=== PATIENT | female | born 1985 | race Caucasian/White ===

== ENCOUNTER 2017-02-02 06:56 | Emergency (ER) | payer OTHER ==
[~2017-02-02] VITALS: Ht 165.1 cm; Wt 99.8 kg
[~2017-02-02 06:56] MED LIST: BACTRIM DS TAB1 EACH PO; CORTISPORIN OTI10 M2 OTIC; NORCO 5-325 TA1 EACH PO; VALIUM5 MG PO; VICODIN
[2017-02-02 07:38] LABS: ABSOLUTE NEUTROPHILS 6.4 thou/uL (1.4-8.2); BASOPHILS 0.6 % (0.0-2.0); EOSINOPHILS 2.1 % (0.0-3.0); HEMATOCRIT 38.7 % (37.0-47.0); HEMOGLOBIN 12.8 gm/dL (12.0-15.0); LYMPHOCYTES 28.2 % (24.0-44.0); MCH 31.6 pg (26.0-34.0); MCV 95.8 fL (80.0-100.0); MONOCYTES 6.6 % (1.0-8.0); PLATELET COUNT 200 thou/uL (150-400); POLYS 62.5 % (36.0-66.0); RBC 4.04 mil/uL (4.20-5.00); RDW 13.5 % (10.5-14.5); WBC 10.3 thou/uL (4.0-11.0)
[2017-02-02 07:44] LABS: MANUAL DIFF NO
[2017-02-02 07:47] LABS: CALCIUM 8.3 mg/dL (8.5-10.1); CREATININE 0.7 mg/dL (0.6-1.0)
[2017-02-02 09:08] VITALS: BP 108/72
== END 2017-02-02 09:05 | disposition home or self-care (01) ==
LOC: ER 06:56
PROVIDERS: Emergency Medicine
DX: R60.0 Localized edema (principal); E66.01 Morbid (severe) obesity due to excess calories; F17.210 Nicotine dependence, cigarettes, uncomplicated; Z88.6 Allergy status to analgesic agent

== ENCOUNTER 2017-08-30 16:57 | Inpatient (IN) | payer OTHER ==
[~2017-08-30] VITALS: Ht 152.4 cm; Wt 95.7 kg
--- NOTE | ~2017-08-30 | EKG ---
[address] [address] ELECTROCARDIOGRAM REPORT Name: ABIGAIL BENAVIDEZ Room #: [facility] .R.#: [id number] Admission: 08/30/17 Attend Phys: Moose Doyle MD Discharge: Date of : 81 Report #: [id number] THIS REPORT FOR: //name// [facility] ED Test Date: 2017-08-30 Test Time: 18:29:46 Pat Name: ABIGAIL BENAVIDEZ Department: Room: [facility] Gender: F [employer] Manager: FREDY : 1985 Requested By: Isidoro Giron Order Number: [id number] MD: Shantanu Miles Measurements Intervals [place] Rate: 81 P: 49 DC: 140 QRS: 28 QRSD: 89 T: 38 QT: 381 QTc: 443 Interpretive Statements Sinus rhythm No previous ECG available for comparison Electronically Signed On 08-31-2017 9:10:04 OPHTHALMIC MEDICAL TECHNICIAN by Shantanu Miles [email or web address] <ELECTRONICALLY SIGNED> By: Shantanu Miles MD 08/31/17 0910 1829 182 MD YRN Guerra
[2017-08-30 18:24] VITALS: BP 114/85
[2017-08-30 18:31] LABS: ABSOLUTE NEUTROPHILS 6.7 thou/uL (1.4-8.2); BASOPHILS 0.9 % (0.0-2.0); EOSINOPHILS 2.6 % (0.0-3.0); HEMOGLOBIN 14.2 gm/dL (12.0-15.0); LYMPHOCYTES 23.9 % (24.0-44.0); MCH 31.2 pg (26.0-34.0); MCHC 33.7 g/dL (28.0-37.0); MCV 92.6 fL (80.0-100.0); MONOCYTES 7.9 % (1.0-8.0); PLATELET COUNT 213 thou/uL (150-400); POLYS 64.7 % (36.0-66.0); RBC 4.53 mil/uL (4.20-5.00); RDW 14.2 % (10.5-14.5); WBC 10.4 thou/uL (4.0-11.0)
[2017-08-30 18:44] LABS: ANION GAP 8 mmol/L (7-16); BUN 12 mg/dL (7-18); CHLORIDE 105 mmol/L (98-107); CO2 29 mmol/L (21-32); CREATININE 0.7 mg/dL (0.6-1.0); GLUCOSE 90 mg/dL (74-106); POTASSIUM 3.8 mmol/L (3.5-5.1); SODIUM 142 mmol/L (136-145)
[2017-08-30 18:51] LABS: ALBUMIN 3.4 g/dL (3.4-5.0); SALICYLATE 2.9 mg/dL (2.8-20.0); SGOT 19 U/L (15-37); SGPT 30 U/L (30-65); TOTAL BILIRUBIN 0.2 mg/dL (<0.1-1.0); TOTAL PROTEIN 7.3 g/dL (6.4-8.2); TROPONIN-I < 0.04 ng/mL (<0.06)
[2017-08-30 19:38] LABS: URINE BILIRUBIN NEGATIVE (Negative); URINE BLOOD TRACE (Negative); URINE CLARITY CLEAR; URINE COLOR YELLOW; URINE GLUCOSE-RANDOM* NEGATIVE (Negative); URINE KETONES TRACE (Negative); URINE PROTEIN (DIPSTICK) NEGATIVE (Negative); URINE SPECIFIC GRAVITY 1.025 (1.005-1.035); URINE UROBILINOGEN 0.2 E.U./dl (0.2-1.0)
[2017-08-30 19:40] LABS: URINE LEUKOCYTES-REFLEX 1+ (Negative); URINE NITRITE-REFLEX POSITIVE (Negative)
[2017-08-30 19:46] LABS: AMP/METHAMP POSITIVE (Negative); BARBITURATES Negative (Negative); BENZODIAZEPINES Negative (Negative); COCAINE Negative (Negative); METHADONE Negative (Negative); OPIATES Negative (Negative); PCP Negative (Negative)
[2017-08-30 19:52] LABS: BACTERIA-REFLEX >30 Many /HPF (None Seen); CASTS None Seen /LPF (None Seen); CRYSTALS None Seen /LPF (None Seen); SQUAMOUS 0-3 Few /LPF (0-3); URINE RBC 0-2 Rare /HPF (0-2); URINE WBC-REFLEX 6-15 Few /HPF (0-5)
[2017-08-30 21:50] VITALS: BP 114/85
[2017-08-30 21:55] VITALS: BP 115/64
[2017-08-30 22:10] VITALS: BP 127/79
[2017-08-31 03:10] VITALS: BP 104/43
[2017-08-31 06:29] LABS: HEMATOCRIT 41.8 % (37.0-47.0); HEMOGLOBIN 13.9 gm/dL (12.0-15.0); MCHC 33.2 g/dL (28.0-37.0); MCV 93.4 fL (80.0-100.0); RBC 4.48 mil/uL (4.20-5.00); RDW 14.5 % (10.5-14.5)
[2017-08-31 06:40] LABS: CALCIUM 8.4 mg/dL (8.5-10.1); CREATININE 0.6 mg/dL (0.6-1.0); POTASSIUM 3.9 mmol/L (3.5-5.1)
[2017-08-31 07:29] VITALS: BP 136/54
[2017-08-31 16:12] VITALS: BP 116/73
[2017-08-31 19:04] VITALS: BP 134/60
[2017-09-01 03:53] VITALS: BP 119/65
[2017-09-01 10:11] VITALS: BP 124/76
== END 2017-09-01 11:30 | disposition home or self-care (01) | DRG 917 ==
LOC: ER 16:57 → EROBS 21:31 → 3W 21:59
PROVIDERS: Nurse Practitioner Family; Physician Assistant
DX: T43.621A Poisoning by amphetamines, accidental (unintentional), initial encounter (principal); G92 Toxic encephalopathy; N39.0 Urinary tract infection, site not specified; F17.210 Nicotine dependence, cigarettes, uncomplicated; A59.9 Trichomoniasis, unspecified; Z98.891 History of uterine scar from previous surgery; Z88.8 Allergy status to other drugs, medicaments and biological substances; Y92.89 Other specified places as the place of occurrence of the external cause
CPT/HCPCS: 10879

== ENCOUNTER 2017-12-17 07:42 | Emergency (ER) | payer OTHER ==
[~2017-12-17] VITALS: Ht 165.1 cm; Wt 86.6 kg
--- NOTE | ~2017-12-17 | EKG ---
[address] [address] ELECTROCARDIOGRAM REPORT Name: ABIGAIL BENAVIDEZ Michael Room #: [facility]#: [id number] Admission: 12/17/17 Attend Phys: Discharge: 12/17/17 Date of : 81 Report #: [id number] THIS REPORT FOR: //name// [facility] ED Test Date: 2017-12-17 Test Time: 07:49:13 Pat Name: ABIGAIL BENAVIDEZ Department: Room: Gender: F [employer] Teacher: david : 1985 Requested By: Anuradha Foreman Order Number: [id number] MD: Shyam Gill Measurements Intervals [place] Rate: 94 P: 70 [place]: 129 QRS: 44 QRSD: 96 T: 45 QT: 400 QTc: 501 Interpretive Statements Sinus rhythm Prolonged QT interval Compared to ECG 08/30/2017 18:29:46 Prolonged QT interval now present Electronically Signed On 12-17-2017 15:43:41 CDT by Shyam Gill [email or web address] <ELECTRONICALLY SIGNED> By: Shyam Gill MD, [facility] 12/17/17 1543 0749 0749 Shyam Gill MD, FACC /EPI
[2017-12-17] MEDS ORDERED: VENTOLIN HFA 1818 GM INH (07:46)
[2017-12-17 08:53] LABS: ANION GAP 8 mmol/L (7-16); BUN 17 mg/dL (7-18); CALCIUM 8.6 mg/dL (8.5-10.1); CHLORIDE 108 mmol/L (98-107); CO2 26 mmol/L (21-32); CREATININE 0.8 mg/dL (0.6-1.0); GLUCOSE 99 mg/dL (74-106); POTASSIUM 3.8 mmol/L (3.5-5.1); SODIUM 142 mmol/L (136-145); TROPONIN-I < 0.04 ng/mL (<0.06)
[2017-12-17 09:12] LABS: ABSOLUTE NEUTROPHILS 6.7 thou/uL (1.4-8.2); BASOPHILS 0.9 % (0.0-2.0); EOSINOPHILS 1.4 % (0.0-3.0); HEMATOCRIT 40.7 % (37.0-47.0); HEMOGLOBIN 13.6 gm/dL (12.0-15.0); MCH 31.4 pg (26.0-34.0); MCHC 33.3 g/dL (28.0-37.0); MCV 94.1 fL (80.0-100.0); MONOCYTES 6.8 % (1.0-8.0); PLATELET COUNT 183 thou/uL (150-400); POLYS 69.9 % (36.0-66.0); RBC 4.33 mil/uL (4.20-5.00); RDW 14.2 % (10.5-14.5); WBC 9.6 thou/uL (4.0-11.0)
== END 2017-12-17 10:26 ==
LOC: ER 07:42
PROVIDERS: Emergency Medicine
DX: R07.9 Chest pain, unspecified (principal); M54.9 Dorsalgia, unspecified; E11.9 Type 2 diabetes mellitus without complications; J45.909 Unspecified asthma, uncomplicated; F17.210 Nicotine dependence, cigarettes, uncomplicated